=== PATIENT | male | born 1975 | race Caucasian/White ===

== ENCOUNTER → 2017-03-15 | Outpatient (CLI) | payer OTHER ==
[~2017-03-15] MED LIST: DIAZ5TAB3 PO; DOXY50CA PO; HYDR1TAB2 PO; PARO20TA PO
== END | disposition home or self-care (01) ==
LOC: C.PATHSPEC 11:01
PROVIDERS: ATTEND Urology
DX: Z30.2 Encounter for sterilization (principal)